=== PATIENT | female | born 1985 | race African-American/Black ===

== ENCOUNTER 2023-01-19 13:40 | Inpatient (IN) | payer OTHER ==
[~2023-01-19] VITALS: Ht 152.4 cm; Wt 95.9 kg
[2023-01-19 14:21] VITALS: BP 128/77
[2023-01-19 14:25] LABS: BASO # 0.1 10*3/uL (0.0-0.1); BASO % 0.8 % (0.0-1.0); EOS # 0.4 10*3/uL (0.0-0.4); EOS % 5.9 % (1.0-4.0); HEMATOCRIT 36.8 % (37.0-47.0); LYMPH # 2.1 10*3/uL (1.3-4.4); LYMPH % 33.5 % (27.0-41.0); MEAN CELL VOLUME 90.9 fl (81.0-99.0); MEAN CORPUSCULAR HGB 29.1 pg (27.0-31.0); MEAN CORPUSCULAR HGB CONC 32.1 g/dl (33.0-37.0); MONO # 0.4 10*3/uL (0.1-1.0); MONO % 5.7 % (3.0-9.0); NEUT # 3.4 10*3/uL (2.3-7.9); NEUT % 53.9 % (47.0-73.0); PLATELET COUNT AUTOMATED 276 10*3/uL (130-400); RED BLOOD COUNT 4.05 10*6/uL (4.10-5.10); RED CELL DISTRI WIDTH 12.3 % (0-14.5); WHITE BLOOD COUNT 6.3 10*3/uL (4.8-10.8)
[2023-01-19 14:35] LABS: INTERNATIONAL NORM RATIO 1.1 (2.0-3.5)
[2023-01-19 14:41] LABS: ALKALINE PHOSPHATASE 78 U/L (46-116); BUN 8 mg/dl (9-23); CHLORIDE 109 mmol/L (98-107); POTASSIUM 3.7 mmol/L (3.4-5.1); SGPT/ALT 12 U/L (10-49); TOTAL PROTEIN 6.8 gm/dL (6.0-8.0)
[2023-01-19 14:49] LABS: ETHYL ALCOHOL < 3.0 mg/dl (<3)
[2023-01-19 16:00] VITALS: BP 131/82
[2023-01-19 20:00] VITALS: BP 128/86
[2023-01-19 20:33] LABS: BILIRUBIN Negative (Negative); BLOOD Negative (Negative); CLARITY Clear (Clear); COLOR Yellow (Yellow); GLUCOSE Negative (Negative); KETONE Negative (Negative); LEUKO ESTERASE Negative (Negative); NITRITE Negative (Negative)
[2023-01-19 20:34] LABS: PH 8.5 (4.5-8.0)
[2023-01-19 20:41] LABS: URINE AMPHETAMINES Negative (1000ng/ml); URINE BARBITURATES Negative (200ng/ml); URINE BENZODIAZEPINES Positive (200ng/ml); URINE CANNABINOIDS (THC) Negative (50ng/ml); URINE COCAINE Negative (300ng/ml); URINE METHADONE Negative (300ng/ml); URINE OPIATES Negative (300ng/ml); URINE PHENCYCLIDINE Negative (25ng/ml)
[2023-01-19 20:56] LABS: BACTERIA TRACE; MUCOUS TRACE
[2023-01-20] VITALS: BP 120/72; BP 137/83
[2023-01-20 04:00] VITALS: BP 121/93
[2023-01-20 08:00] VITALS: BP 123/70
[2023-01-20 12:00] VITALS: BP 128/82
== END 2023-01-20 15:30 | disposition left against medical advice (07) | DRG 770 ==
LOC: 5E 13:40
PROVIDERS: Registered Nurse; ADMIT Internal Medicine; ATTEND Internal Medicine
DX: F11.13 Opioid abuse with withdrawal (principal); F32.A Depression, unspecified; R19.7 Diarrhea, unspecified; Z53.29 Procedure and treatment not carried out because of patient's decision for other reasons; R52 Pain, unspecified; F19.90 Other psychoactive substance use, unspecified, uncomplicated; F41.9 Anxiety disorder, unspecified; Z82.49 Family history of ischemic heart disease and other diseases of the circulatory system